=== PATIENT | female | born 1940 | race African-American/Black ===

== ENCOUNTER 2018-11-04 03:53 | Inpatient (IN) | payer MEDICARE, OTHER ==
[~2018-11-04] VITALS: Ht 160 cm; Wt 59.0 kg
[~2018-11-04 03:53] MED LIST: FURO-152 PO; LISI-650 PO
[2018-11-04 05:40] LABS: BG BASE EXCESS -1.1 mmol/L (-2.0-2.0); BG CARBOXYHEMOGLOBIN 0.9 % (0.5-1.5); BG DEOXYHEMOGLOBIN 2.3 % (0.0-5.0); BG FRACTION INSPIRED OXYGEN 21; BG HCO3 ACT 20.6 mmol/L (22.0-26.0); BG METHEMOGLOBIN 0.3 % (0.0-1.5); BG OXYGEN SATURATION 97.7 % (92.0-98.5); BG OXYHEMOGLOBIN 96.5 % (94.0-97.0); BG PCO2 26.6 mmHg (35.0-45.0); BG PH 7.507 (7.350-7.450); BG PO2 101.3 mmHg (75.0-100.0); BG SAMPLE SITE RIGHT RADIAL; BG TOTAL HEMOGLOBIN 13.4 g/dL (12.0-18.0); BG VENT MODE ROOM AIR
[2018-11-04 07:21] LABS: BASOPHILS % 0.4 % (0.0-2.0); EOSINOPHILS % 0.1 % (0.0-5.0); HEMATOCRIT. 39.1 % (36.0-48.0); HEMOGLOBIN. 12.6 g/dL (12.0-16.0); LYMPHOCYTES % 29.5 % (20.0-50.0); MEAN CORPUSCULAR HEMOGLOBIN 27.9 pg (28.0-32.0); MEAN CORPUSCULAR VOLUME 86.7 fL (81.0-99.0); MEAN PLATELET VOLUME 9.9 fl (7.4-10.4); MONOCYTES % 4.1 % (2.0-8.0); NEUTROPHILS % 65.9 % (40.0-76.0); PLATELET 130 x1000/uL (130-400); RED BLOOD CELL COUNT 4.51 mill/uL (4.2-5.4); RED CELL DISTRIBUTION WIDTH 17.8 % (11.6-14.6)
[2018-11-04 07:27] LABS: CHLORIDE 91 mEq/L (98-107)
[2018-11-04 07:32] LABS: D-DIMER 2.18 mg/L FEU (<0.50); INR 1.3; PARTIAL THROMBOPLASTIN TIME 25.6 sec (23.4-31.0); PROTHROMBIN TIME 13.4 sec (9.1-11.1)
[2018-11-04 09:12] VITALS: BP 102/62
[2018-11-04] MEDS ORDERED: GUAIFENESIN 200MG/10ML SUGAR FREE UDC PO PRN (09:45)
[2018-11-04] MEDS ORDERED: ACETAMINOPHEN 325MG TABLET PO PRN (09:45)
[2018-11-04] MEDS ORDERED: CLONIDINE 0.1MG TABLET PO PRN (09:45)
[2018-11-04] MEDS ORDERED: MAGNESIUM/ALUMINUM HYDROXIDE/SIMETHICONE 30ML UDC PO PRN (09:45)
[2018-11-04] MEDS ORDERED: DIPHENHYDRAMINE 50MG/ML VIAL IV PRN (09:45)
[2018-11-04] MEDS ORDERED: SODIUM CHLORIDE 0.9% 1,000 ML IV SCH (09:45)
[2018-11-04] MEDS ORDERED: DOCUSATE SODIUM 100MG CAPSULE PO PRN (09:45)
[2018-11-04] MEDS ORDERED: IPRATROPIUM/ALBUTEROL 0.5-3(2.5)MG/3ML NEB INH PRN (09:45)
[2018-11-04] MEDS ORDERED: NA PHOS,M-B/NA PHOS,DI-BA ENEMA 118ML PR PRN (09:45)
[2018-11-04] MEDS ORDERED: ACETAMINOPHEN 650MG SUPP PR PRN (09:45)
[2018-11-04] MEDS ORDERED: DEXTROSE 50% WATER 50ML SYRINGE IV PRN (09:45)
[2018-11-04] MEDS ORDERED: LORAZEPAM 0.5MG TABLET PO PRN (09:45)
[2018-11-04] MEDS ORDERED: CARV6.2548 MT (10:21)
[2018-11-04] MEDS ORDERED: SPIR25TA6 MT (10:21)
[2018-11-04] MEDS ORDERED: FURO80TA3 MT ×2 (10:27→10:35)
[2018-11-04] MEDS ORDERED: ASA5EC PO (10:27)
[2018-11-04] MEDS ORDERED: FUROSEMIDE 20MG/2ML VIAL IVP SCH (10:30)
[2018-11-04] MEDS: SPIRONOLACTONE 25MG TABLET PO SCH (10:30)
[2018-11-04] MEDS ORDERED: SILD20TA PO (10:31)
[2018-11-04] MEDS ORDERED: FURO40TA5 MT (10:35)
[2018-11-04] MEDS: CARVEDILOL 3.125 MG TABLET PO SCH ×2 (11:00→21:00)
[2018-11-04] MEDS: BLOOD SUGAR DIAGNOSTIC STRIP TEST SCH ×3 (12:10→21:00)
[2018-11-04 12:30] VITALS: BP 99/66
[2018-11-04] MEDS: INSULIN LISPRO 100 UNITS/ML SUBCUT SCH ×3 (12:40→21:00)
[2018-11-04] MEDS: ENOXAPARIN 30MG/0.3ML SYR SUBCUT SCH (13:47)
[2018-11-04] MEDS: ONDANSETRON HCL 4MG/2ML INJ IV PRN ×2 (13:55→23:45)
[2018-11-04 15:50] VITALS: BP_SYST 100; BP_SYST 91; BP_DIAS 66; BP_DIAS 70
[2018-11-04 16:01] LABS: CREATINE KINASE 83 IU/L (26-192); CREATINE KINASE MB FRACTION < 1.0 ng/mL (0.5-3.6)
[2018-11-04 20:00] VITALS: BP 101/60
[2018-11-04] MEDS: METRONIDAZOLE 500MG TABLET PO SCH (22:45)
[2018-11-04 23:30] LABS: CREATINE KINASE MB FRACTION < 1.0 ng/mL (0.5-3.6)
[2018-11-04 23:31] LABS: CREATINE KINASE 80 IU/L (26-192)
[2018-11-05] VITALS (7 sets, daily range): BP systolic 86–113; BP diastolic 47–97
[2018-11-05] MEDS: METRONIDAZOLE 500MG TABLET PO SCH ×3 (05:58→22:08)
[2018-11-05] MEDS: INSULIN LISPRO 100 UNITS/ML SUBCUT SCH ×4 (06:27→21:00)
[2018-11-05] MEDS: BLOOD SUGAR DIAGNOSTIC STRIP TEST SCH ×4 (06:27→21:00)
[2018-11-05 06:53] LABS: CHLORIDE 91 mEq/L (98-107)
[2018-11-05 07:13] LABS: LDL CHOLESTEROL 83 mg/dL (5-100)
[2018-11-05 07:14] LABS: HDL CHOLESTEROL 34 mg/dL (40-59); T4 FREE 1.05 ng/dL (0.76-1.46)
[2018-11-05 07:32] LABS: HEMATOCRIT. 36.7 % (36.0-48.0); MEAN CORPUSCULAR HEMOGLOBIN 28.3 pg (28.0-32.0); MEAN PLATELET VOLUME 10.1 fl (7.4-10.4); PLATELET 171 x1000/uL (130-400); RED BLOOD CELL COUNT 4.22 mill/uL (4.2-5.4); RED CELL DISTRIBUTION WIDTH 18.1 % (11.6-14.6)
[2018-11-05] MEDS: SPIRONOLACTONE 25MG TABLET PO SCH (09:00)
[2018-11-05] MEDS: CARVEDILOL 3.125 MG TABLET PO SCH ×2 (09:00→21:00)
[2018-11-05] MEDS: FUROSEMIDE 40MG/4ML VIAL IVP SCH (11:22)
[2018-11-05] MEDS: ENOXAPARIN 30MG/0.3ML SYR SUBCUT SCH (11:22)
[2018-11-05 13:20] LABS: PLATELET ESTIMATE NORMAL
[2018-11-05 18:11] LABS: BG BASE EXCESS -1.5 mmol/L (-2.0-2.0); BG CARBOXYHEMOGLOBIN 0.8 % (0.5-1.5); BG DEOXYHEMOGLOBIN 3.1 % (0.0-5.0); BG HCO3 ACT 19.6 mmol/L (22.0-26.0); BG METHEMOGLOBIN 0.4 % (0.0-1.5); BG OXYGEN SATURATION 96.9 % (92.0-98.5); BG OXYHEMOGLOBIN 95.7 % (94.0-97.0); BG PCO2 24.2 mmHg (35.0-45.0); BG PH 7.526 (7.350-7.450); BG PO2 86.2 mmHg (75.0-100.0); BG SAMPLE SITE LEFT BRACHIAL; BG TOTAL HEMOGLOBIN 13.5 g/dL (12.0-18.0); BG VENT MODE ROOM AIR
[2018-11-06] VITALS (12 sets, daily range): BP systolic 89–115; BP diastolic 59–73
[2018-11-06] MEDS: METRONIDAZOLE 500MG TABLET PO SCH ×3 (06:12→21:45)
[2018-11-06] MEDS: BLOOD SUGAR DIAGNOSTIC STRIP TEST SCH ×4 (06:12→21:00)
[2018-11-06] MEDS: INSULIN LISPRO 100 UNITS/ML SUBCUT SCH ×4 (06:32→21:45)
[2018-11-06 06:43] LABS: HEMATOCRIT. 39.3 % (36.0-48.0); HEMOGLOBIN. 12.9 g/dL (12.0-16.0); MEAN CORPUSCULAR HEMOGLOBIN 28.2 pg (28.0-32.0); MEAN CORPUSCULAR VOLUME 85.8 fL (81.0-99.0); PLATELET 165 x1000/uL (130-400); RED BLOOD CELL COUNT 4.58 mill/uL (4.2-5.4); RED CELL DISTRIBUTION WIDTH 18.2 % (11.6-14.6)
[2018-11-06] MEDS: SPIRONOLACTONE 25MG TABLET PO SCH (08:03)
[2018-11-06] MEDS: CARVEDILOL 3.125 MG TABLET PO SCH ×2 (08:04→21:46)
[2018-11-06] MEDS: FUROSEMIDE 40MG/4ML VIAL IVP SCH ×2 (08:05→13:17)
[2018-11-06 10:26] LABS: NUCLEATED RED BLOOD CELLS 5 /100 WBC; PLATELET ESTIMATE NORMAL
[2018-11-06] MEDS ORDERED: DOBUTAMINE 250MG PREMIX 250 ML IV SCH ×2 (11:45→11:58)
[2018-11-06] MEDS: ENOXAPARIN 30MG/0.3ML SYR SUBCUT SCH (13:17)
[2018-11-06] MEDS: DOBUTAMINE 250MG PREMIX 250ML IV SCH (14:43)
[2018-11-06] MEDS: VANCOMYCIN HCL 1 GM/VIAL PO SCH (18:35)
[2018-11-06] MEDS: ONDANSETRON HCL 4MG/2ML INJ IV PRN (20:00)
[2018-11-07] VITALS (14 sets, daily range): BP systolic 90–120; BP diastolic 53–78
[2018-11-07] MEDS: VANCOMYCIN HCL 1 GM/VIAL PO SCH ×3 (00:30→12:08)
[2018-11-07] MEDS: HYDROCODONE/ACETAMINOPHEN 5/325MG TABLET PO PRN (01:25)
[2018-11-07] MEDS: DOBUTAMINE 250MG PREMIX 250ML IV SCH ×2 (04:56→18:52)
[2018-11-07 06:16] LABS: HEMATOCRIT. 35.7 % (36.0-48.0); HEMOGLOBIN. 11.7 g/dL (12.0-16.0); MEAN CORPUSCULAR HEMOGLOBIN 28.1 pg (28.0-32.0); MEAN PLATELET VOLUME 9.7 fl (7.4-10.4); PLATELET 161 x1000/uL (130-400); RED BLOOD CELL COUNT 4.15 mill/uL (4.2-5.4); RED CELL DISTRIBUTION WIDTH 18.3 % (11.6-14.6)
[2018-11-07] MEDS: BLOOD SUGAR DIAGNOSTIC STRIP TEST SCH ×4 (06:40→21:32)
[2018-11-07] MEDS: METRONIDAZOLE 500MG TABLET PO SCH ×3 (06:40→22:24)
[2018-11-07] MEDS: INSULIN LISPRO 100 UNITS/ML SUBCUT SCH ×4 (07:20→21:38)
[2018-11-07] MEDS: CARVEDILOL 3.125 MG TABLET PO SCH ×2 (08:23→22:24)
[2018-11-07] MEDS: FUROSEMIDE 40MG/4ML VIAL IVP SCH (08:25)
[2018-11-07] MEDS: SPIRONOLACTONE 25MG TABLET PO SCH (08:25)
[2018-11-07] MEDS ORDERED: POTASSIUM CHLORIDE 20MEQ/PACKET PO NR (08:45)
[2018-11-07] MEDS: ENOXAPARIN 30MG/0.3ML SYR SUBCUT SCH (10:12)
[2018-11-07 13:58] LABS: PLATELET ESTIMATE NORMAL
[2018-11-07] MEDS: VANCOMYCIN HCL 1000 MG/20 ML ORAL PO SCH ×2 (18:57→23:55)
[2018-11-07] MEDS: ONDANSETRON HCL 4MG/2ML INJ IV PRN (21:38)
[2018-11-08] VITALS (15 sets, daily range): BP systolic 80–108; BP diastolic 40–75
[2018-11-08] MEDS: VANCOMYCIN HCL 1000 MG/20 ML ORAL PO SCH ×4 (06:16→23:01)
[2018-11-08] MEDS: METRONIDAZOLE 500MG TABLET PO SCH ×3 (06:16→21:04)
[2018-11-08] MEDS: BLOOD SUGAR DIAGNOSTIC STRIP TEST SCH ×4 (06:17→20:49)
[2018-11-08] MEDS: INSULIN LISPRO 100 UNITS/ML SUBCUT SCH ×4 (06:59→20:49)
[2018-11-08 07:01] LABS: BASOPHILS % 0.3 % (0.0-2.0); EOSINOPHILS % 0.1 % (0.0-5.0); HEMATOCRIT. 33.6 % (36.0-48.0); HEMOGLOBIN. 9.7 g/dL (12.0-16.0); LYMPHOCYTES % 7.7 % (20.0-50.0); MEAN CORPUSCULAR HEMOGLOBIN 28.5 pg (28.0-32.0); MEAN CORPUSCULAR VOLUME 98.7 fL (81.0-99.0); MEAN PLATELET VOLUME 10.1 fl (7.4-10.4); MONOCYTES % 5.4 % (2.0-8.0); NEUTROPHILS % 86.5 % (40.0-76.0); PLATELET 112 x1000/uL (130-400); RED CELL DISTRIBUTION WIDTH 18.6 % (11.6-14.6)
[2018-11-08] MEDS: DOBUTAMINE 250MG PREMIX 250ML IV SCH (09:35)
[2018-11-08] MEDS: FUROSEMIDE 40MG/4ML VIAL IVP SCH (09:51)
[2018-11-08] MEDS: CARVEDILOL 3.125 MG TABLET PO SCH ×3 (09:56→20:35)
[2018-11-08] MEDS: SPIRONOLACTONE 25MG TABLET PO SCH (09:57)
[2018-11-08] MEDS: ENOXAPARIN 30MG/0.3ML SYR SUBCUT SCH (10:03)
[2018-11-08] MEDS ORDERED: DOBUTAMINE 250MG PREMIX 250 ML IV SCH (10:25)
[2018-11-08 15:07] LABS: HEMATOCRIT 38.8 % (36.0-48.0); HEMOGLOBIN 12.6 g/dL (12.0-16.0)
[2018-11-08] MEDS ORDERED: SODIUM CHLORIDE 0.9% 500 ML IV NR (15:45)
[2018-11-08] MEDS: HYDROCODONE/ACETAMINOPHEN 5/325MG TABLET PO PRN (15:46)
[2018-11-08] MEDS ORDERED: MIDODRINE HCL 5MG TABLET PO PRN (16:30)
[2018-11-08] MEDS: DOBUTAMINE 250MG PREMIX 250 ML IV SCH (18:50)
[2018-11-09] VITALS (12 sets, daily range): BP systolic 71–111; BP diastolic 43–73
[2018-11-09] MEDS: DOBUTAMINE 250MG PREMIX 250 ML IV SCH (02:11)
[2018-11-09] MEDS: METRONIDAZOLE 500MG TABLET PO SCH ×2 (05:11→14:00)
[2018-11-09] MEDS: VANCOMYCIN HCL 1000 MG/20 ML ORAL PO SCH ×2 (05:11→12:17)
[2018-11-09] MEDS: INSULIN LISPRO 100 UNITS/ML SUBCUT SCH ×2 (05:30→12:18)
[2018-11-09] MEDS: BLOOD SUGAR DIAGNOSTIC STRIP TEST SCH ×2 (05:30→10:56)
[2018-11-09 06:41] LABS: HEMOGLOBIN 12.1 g/dL (12.0-16.0); MEAN CORPUSCULAR HEMOGLOBIN 27.7 pg (28.0-32.0); MEAN CORPUSCULAR VOLUME 86.8 fL (81.0-99.0); PLATELET 146 x1000/uL (130-400); RED BLOOD CELL COUNT 4.38 mill/uL (4.2-5.4); RED CELL DISTRIBUTION WIDTH 18.3 % (11.6-14.6)
[2018-11-09] MEDS: FUROSEMIDE 40MG/4ML VIAL IVP SCH (08:25)
[2018-11-09] MEDS: CARVEDILOL 3.125 MG TABLET PO SCH (08:25)
[2018-11-09] MEDS: SPIRONOLACTONE 25MG TABLET PO SCH (08:26)
[2018-11-09] MEDS: ENOXAPARIN 30MG/0.3ML SYR SUBCUT SCH (12:16)
[2018-11-09] MEDS ORDERED: MIDODRINE HCL 5MG TABLET PO SCH ×2 (14:15→17:00)
[2018-11-09] MEDS ORDERED: ETOMIDATE 2MG/ML 10ML VIAL IV ONE (15:09)
[2018-11-09] MEDS ORDERED: SUCCINYLCHOLINE CHLORIDE 200MG/10ML IV ONE (15:09)
[2018-11-09] MEDS ORDERED: NOREPINEPHRINE 16 MG in DEXT 5% WATER 234 ML IV PRN (16:00)
[2018-11-09 16:22] LABS: BG BASE EXCESS -14.3 mmol/L (-2.0-2.0); BG CARBOXYHEMOGLOBIN 0.7 % (0.5-1.5); BG DEOXYHEMOGLOBIN 0.1 % (0.0-5.0); BG FRACTION INSPIRED OXYGEN 100; BG HCO3 ACT 8.1 mmol/L (22.0-26.0); BG METHEMOGLOBIN 0.3 % (0.0-1.5); BG OXYGEN SATURATION 99.9 % (92.0-98.5); BG OXYHEMOGLOBIN 98.9 % (94.0-97.0); BG PCO2 14.4 mmHg (35.0-45.0); BG PH 7.368 (7.350-7.450); BG PO2 314.6 mmHg (75.0-100.0); BG SAMPLE SITE LEFT FEMORAL; BG TIDAL VOLUME(mL) 450 mL; BG TOTAL HEMOGLOBIN 13.4 g/dL (12.0-18.0); BG VENT MODE VENT - A/C; BG VENT RATE 14 set
== END 2018-11-09 16:30 | disposition expired | DRG 291 ==
LOC: ER 03:53 → 8WST 06:15 → EDBEDREQ 06:20 → EDBEDREQTM 06:20 → ENRESERV 08:00 → 8WST 08:41 → 3WST 11-05 23:10 → MICUSO 11-09 15:23
PROVIDERS: ADMIT Internal Medicine; ATTEND Internal Medicine
PROC: 0BH17EZ Insertion of Endotracheal Airway into Trachea, Via Natural or Artificial Opening (ICD-10-PCS; principal; 2018-11-09)
PROC: 5A1935Z Respiratory Ventilation, Less than 24 Consecutive Hours (ICD-10-PCS; 2018-11-09)
DX: I13.0 Hypertensive heart and chronic kidney disease with heart failure and stage 1 through stage 4 chronic kidney disease, or unspecified chronic kidney disease (principal); I50.23 Acute on chronic systolic (congestive) heart failure; J96.00 Acute respiratory failure, unspecified whether with hypoxia or hypercapnia; N17.9 Acute kidney failure, unspecified; E87.1 Hypo-osmolality and hyponatremia; A04.72 Enterocolitis due to Clostridium difficile, not specified as recurrent; R18.8 Other ascites; I42.0 Dilated cardiomyopathy; R62.7 Adult failure to thrive; G90.8 Other disorders of autonomic nervous system; R63.4 Abnormal weight loss; I95.9 Hypotension, unspecified; Z51.5 Encounter for palliative care; I46.9 Cardiac arrest, cause unspecified; Z66 Do not resuscitate; E87.6 Hypokalemia; I27.20 Pulmonary hypertension, unspecified; N18.9 Chronic kidney disease, unspecified; E02 Subclinical iodine-deficiency hypothyroidism; E11.65 Type 2 diabetes mellitus with hyperglycemia; E11.22 Type 2 diabetes mellitus with diabetic chronic kidney disease; I08.1 Rheumatic disorders of both mitral and tricuspid valves; Z95.810 Presence of automatic (implantable) cardiac defibrillator; Z79.899 Other long term (current) drug therapy; Z79.82 Long term (current) use of aspirin
CPT/HCPCS: 36415; 36600; 71045; 74176; 76705; 78582; 80048; 80061; 82375; 82378; 82550; 82553; 82805; 82962; 83036; 83605; 83735; 83880; 84145; 84439; 84443; 84484; 85014; 85018; 85027; 85379; 86850; 86900; 87493; 93005; 93306; 93880; 93970; 94002; 96374; 96375; 97116; 97161; 97530; 99285; A6261; A9558; J0330; J1200; J1250; J1650; J1815; J1940; J2405; J3370; J3490; J7030; J7040; J7060; J7620